=== PATIENT | male | born 1965 | race American Indian/Alaskan Native ===

== ENCOUNTER 2018-04-15 18:51 | Emergency (ER) | payer SELFPAY ==
[2018-04-15] MEDS ORDERED: ASPIRIN PO ONE (19:09)
[2018-04-15 19:57] LABS: BUN/Creatinine Ratio 11; Blood Urea Nitrogen 17 mg/dL (9-20); Calcium 9.4 mg/dL (8.4-10.2); Hemolysis Index 62
[2018-04-15 19:58] LABS: Hematocrit 53.1 % (35.5-45.6); Hemoglobin 17.8 gm/dl (11.8-15.2); Mean Corpuscular HGB Conc 34 % (32-34); Mean Corpuscular Hemoglobin 29 pg (28-32); Mean Corpuscular Volume 88 fl (84-94); Platelet Count 282 K/mm3 (140-440); Red Blood Count 6.05 M/mm3 (3.65-5.03); Red Cell Distribution Width 15.6 % (13.2-15.2)
[2018-04-15 20:12] LABS: Basophils # (Auto) 0.1 K/mm3 (0.0-0.1); Basophils % (Auto) 0.7 % (0.0-1.8); Eosinophils # (Auto) 0.1 K/mm3 (0.0-0.4); Eosinophils % (Auto) 1.5 % (0.0-4.3); Lymphocytes # (Auto) 2.9 K/mm3 (1.2-5.4); Lymphocytes % (Auto) 38.1 % (13.4-35.0); Monocytes # (Auto) 0.4 K/mm3 (0.0-0.8); Monocytes % (Auto) 5.8 % (0.0-7.3)
[2018-04-15] MEDS ORDERED: ZOFRAN ODT PO ONE (21:34)
[2018-04-15] MEDS ORDERED: NORCO 7.5/325 PO ONE (21:34)
--- NOTE | 2018-04-15 21:54 | XRay Report ---
FINAL REPORT EXAM: XR CHEST ROUTINE 2V HISTORY: rt chest and scapula pain TECHNIQUE: Frontal and lateral chest x-ray. PRIORS: None. FINDINGS: Cardiac and mediastinal silhouette within normal limits. Lungs are normally expanded. No significant vascular congestion. No focal consolidation, apparent pleural effusion or pneumothorax. Bony thorax grossly unremarkable. IMPRESSION: 1. No acute findings.
[2018-04-15 22:34] VITALS: BP 115/81
--- NOTE | 2018-04-15 22:42 | Emergency Department Report ---
HPI - General Chief Complaint: Chest Pain Time Seen by Provider: 04/15/18 20:22 - HPI HPI: The patient is a 52-year-old male who presents for evaluation of right back and chest pain. The patient reports 2 weeks of pain to the right scapular region, spreading to the right anterior lateral chest wall, sharp in quality, moderate severity, worsened with movement of the right arm at the shoulder joint. The patient denies fever, neck pain, parasthesias, dyspnea, cough, hemoptysis, palpitations, dizziness, syncope, unilateral leg swelling, calf muscle pain. Patient also denies cocaine or other stimulant use, history of DVT or PE, recent immobilization, or history of cancer. ED Past Medical Hx - Past Medical History Hx Heart Attack/AMI: Yes (stents x2) Hx Diabetes: Yes (boarderline) Hx HIV: Yes (CD4 1000,01/2018) - Surgical History Additional Surgical History: cath with stents 2013 - Social History Smoking Status: Current Every Day Smoker Substance Use Type: Alcohol - Medications Home Medications: Home Medications Medication Instructions Recorded Confirmed Last Taken Type HYDROcodone/APAP 5-325 [Tupman 1 each PO Q6HR PRN #15 tablet 04/15/18 Unknown Rx 5/325] ED Review of Systems ROS: Stated complaint: RT SIDE PAIN/CHEST PAIN Other details as noted in HPI Constitutional: denies: fever ENT: denies: throat or neck pain Respiratory: denies: cough, shortness of breath Cardiovascular: reports: chest pain Endocrine: denies unexplained weight loss or gain Gastrointestinal: denies: abdominal pain, nausea Genitourinary: denies: dysuria Musculoskeletal: denies: leg swelling Skin: denies: rash Neurological: denies: headache Hematological/Lymphatic: denies: easy bleeding or easy bruising Psych: denies sadness or hopelessness Physical Exam - Physical Exam Vital Signs: Vital Signs 04/15/18 04/15/18 19:03 20:32 Temperature 98.4 F 98.2 F Pulse Rate 85 73 Respiratory 18 17 Rate Blood Pressure 108/69 Blood Pressure 111/66 [Left] O2 Sat by Pulse 100 98 Oximetry Physical Exam: General: well-nourished, well-developed, no acute distress Head: Normocephalic, atraumatic Eyes: normal sclera ENT: Mucous membranes are pale and dry Neck: trachea midline, neck supple, No neck stiffness, no cervical adenopathy Respiratory: Breath sounds equal bilaterally, no wheezing, rales, or rhonchi Cardio: S1 and S2 present, no murmurs, rubs, gallops, capillary refill is delayed Abdomen: Normoactive bowel sounds, soft abdomen, no rigidity, no guarding or rebound tenderness Chest WALL/Back: No tenderness to palpation of the chest wall, right chest wall and posteriolateral intercostal pain reproduced with abduction, adduction, and internal rotation of the right arm, no CVA tenderness with percussion Musc: No pitting edema Skin: No rash Neuro: no facial drooping, normal speech Psych: Normal affect ED Course Vital Signs 04/15/18 04/15/18 19:03 20:32 Temperature 98.4 F 98.2 F Pulse Rate 85 73 Respiratory 18 17 Rate Blood Pressure 108/69 Blood Pressure 111/66 [Left] O2 Sat by Pulse 100 98 Oximetry ED Medical Decision Making - Lab Data Result diagrams: 04/15/18 19:35 04/15/18 19:35 - Medical Decision Making The patient was seen and examined by myself. The patient is placed on a nurse monitoring and continuous pulse ox. On initial evaluation, the patient was found to be in no distress. EKG was negative for findings suggestive of acute cardiac infarct. Labs and imaging are obtained. The patient was given a tablet of Tupman for his pain. Chest x-ray is negative for pneumothorax, focal consolidation, pulmonary vascular congestion, pleural effusion, or other obvious acute cardiopulmonary disease process. Lab results were non-concerning including levels of troponin, WBC, hemoglobin, hematocrit, electrolytes, renal function. The patient was reevaluated and reported that their symptoms were markedly improved. As the patient has a DANNY risk score less than 2, and a well 's score less than 2, the patient is at low risk of ACS or pulmonary emboli etiology of their symptoms. The patient is stable for discharge with outpatient follow-up. The patient is given follow-up and return instructions. The patient expressed understanding and agreed with the plan. The patient is discharged in stable condition. Critical care attestation.: If time is entered above; I have spent that time in minutes in the direct care of this critically ill patient, excluding procedure time. ED Disposition Clinical Impression: Acute chest wall pain, Acute upper back pain Disposition: TO HOME OR SELFCARE Is pt being admited?: No Does the pt Need Aspirin: No Condition: Stable Instructions: Chest Pain (ED), Costochondritis (ED), Muscle Strain (ED) Referrals: [facility] [Outside] - 3-5 Days Time of Disposition: 22:33
== END 2018-04-15 23:31 | disposition home or self-care (01) ==
LOC: ED 18:51
DX: R07.89 Other chest pain (principal); M54.89 Other dorsalgia; F17.200 Nicotine dependence, unspecified, uncomplicated; I25.2 Old myocardial infarction; E11.9 Type 2 diabetes mellitus without complications; Z95.818 Presence of other cardiac implants and grafts; Z88.6 Allergy status to analgesic agent
CPT/HCPCS: 36415; 71046; 80048; 84484; 85025; 93005; 93010; Q0162